=== PATIENT | female | born 1955 | race African-American/Black ===

== ENCOUNTER 2019-09-28 13:25 | Emergency (ER) | payer MEDICARE, BC ==
[~2019-09-28] VITALS: Ht 337.8 cm; Wt 97.9 kg
[2019-09-28 14:01] VITALS: BP 141/75
[2019-09-28 14:15] LABS: BASO % 1 % (0-3); EOS # 0.2 x10^3/uL (0.0-0.7); EOS % 2 % (0-3); HEMATOCRIT 38.3 % (36.0-47.0); LYMPH % 15 % (24-48); MEAN CORPUSCULAR HEMOGLOBIN 25 pg (25-35); MEAN CORPUSCULAR HGB CONC 31 g/dL (31-37); MEAN CORPUSCULAR VOLUME 79 fL (79-100); MONO # 0.8 x10^3/uL (0.0-1.1); MONO % 11 % (0-9); NEUT # 5.2 x10^3uL (1.8-7.7); NEUT % 72 % (31-73); PLATELET COUNT 225 x10^3/uL (140-400); RED BLOOD COUNT 4.84 x10^6/uL (3.50-5.40); RED CELL DISTRIBUTION WIDTH 13.9 % (11.5-14.5); WHITE BLOOD COUNT 7.2 x10^3/uL (4.0-11.0)
[2019-09-28 14:24] LABS: CALCIUM 9.3 mg/dL (8.5-10.1); CREATININE 1.5 mg/dL (0.6-1.0); POTASSIUM 3.9 mmol/L (3.5-5.1)
[2019-09-28 14:30] LABS: ALBUMIN 3.6 g/dL (3.4-5.0); MAGNESIUM 1.8 mg/dL (1.8-2.4); TOTAL BILIRUBIN 0.2 mg/dL (0.2-1.0); TOTAL PROTEIN 7.2 g/dL (6.4-8.2)
[2019-09-28 15:09] LABS: BILIRUBIN,URINE NEG (NEG); CLARITY,URINE HAZY; COLOR,URINE YELLOW; GLUCOSE,URINE 500 mg/dL (NEG)
[2019-09-28 15:10] LABS: BACTERIA,URINE FEW /HPF (0-FEW); NITRITE,URINE NEG (NEG); RBC,URINE 0 /HPF (0-2); SQUAMOUS EPITHELIAL CELL,UR MANY /LPF; UROBILINOGEN,URINE 0.2 mg/dL (0.2 mg/dL)
--- NOTE | 2019-09-28 15:43 | RAD ---
EXAM: Abdomen and pelvis CT without intravenous contrast. HISTORY: Midabdominal pain. TECHNIQUE: Computed tomographic images of the abdomen and pelvis were obtained without contrast. Multiplanar reformatting was performed. *One or more of the following individualized dose reduction techniques were utilized for this examination: 1. Automated exposure control. 2. Adjustment of the mA and/or kV according to patient size. 3. Use of iterative reconstruction technique. COMPARISON: None. FINDINGS: Evaluation of the lower thorax demonstrates atelectasis or scarring within the anterior inferior right middle lobe. There is a right infrahilar mass with soft tissue attenuation measuring approximately 6.2 cm transaxially. There is narrowing of the distal esophagus in this location. This soft tissue appears to extend beyond the midline to the left aspect of the esophagus. There is bilateral basilar atelectasis. There is a gastric lap band. There is slight fatty infiltration of the liver along the falciform ligament. There is a tiny cyst within the inferior right hepatic lobe. The gallbladder is surgically absent. The pancreas is unremarkable. There are multiple splenic granulomas. The adrenal glands are unremarkable. There is superior and inferior left renal cortical lobulation and cortical thinning due to scarring. There is a 7 mm nonobstructing stone within the lower pole the left kidney. There is a suspected 1.7 cm hypodense lesion within the medial superior right kidney, difficult to assess in the absence of contrast. There is mild urinary bladder wall thickening. There is no appendicitis. There is colonic diverticulosis. There is no diverticulitis. There are multiple uterine fibroids, some which are hyperdense. There is a small amount of pelvic free fluid. The aorta is normal in caliber. There is no lymphadenopathy. There is a tiny fat-containing supraumbilical hernia to the left of midline. There are degenerative changes throughout the spine. There is no suspicious osseous lesion. IMPRESSION: 1. 6.1 cm right infrahilar mass which appears to extend to the left of midline, measuring 6.1 cm. There is mild narrowing of the distal esophagus in this location. In the absence of prior studies for characterization, postcontrast imaging of the chest is recommended for better characterization. 2. Colonic diverticulosis. 3. Enlarged uterus containing multiple fibroids. 4. Left renal cortical scarring and left nephrolithiasis. There may be a small hypodense lesion within the medial superior right kidney. Renal sonography can be performed to confirm benignity. 5. Urinary bladder wall thickening. Correlate for cystitis. 5. Gastric lap band. Electronically signed by: Jennifer Maldonado MD (09/28/2019 3:40 PM) [facility]
[2019-09-28] MEDS ORDERED: IV NORMAL SALINE 1,000ML 1,000 ML IV ONE (16:00)
--- NOTE | 2019-09-28 16:03 | PHYS DOC ---
Past History Past Medical History: Anxiety, Asthma, Diabetes, Hypertension Past Surgical History: Other (LAP BAND) Alcohol Use: None General Adult EDM: Chief Complaint: ABDOMINAL PAIN HPI: HPI: Patient is a 64-year-old female who presented to ER today for evaluation of epigastric abdominal pain for about 10 days associate with some nausea. Patient said sometimes she felt like she had trouble swallowing after eating. She felt like she has been burping a lot lately. Patient also complained of left-sided flank pain for about 10 days as well, she had tried to put heating pad on the area, then this morning she woke up and noticed painful rash on the left side of her chest and her flank area. Patient denies any fever, no trouble breathing. Patient has history hypertension, history of lap band. Patient says she had some type of cysts or nodule in her lung that she was seen by a laborer tin can in [place], [place] where she is from, per patient her lung doctor was not concerned about it. He recommended to monitor the size of the cyst in her lung. Review of Systems: Review of Systems: Constitutional: Denies fever or chills Eyes: Denies change in visual acuity HENT: Denies nasal congestion or sore throat Respiratory: Denies cough or shortness of breath Cardiovascular: Denies chest pain or edema GI: Positive for abdominal pain, nausea, NO vomiting, bloody stools or diarrhea : Denies dysuria Musculoskeletal: Denies back pain or joint pain Integument: Positive for rash Neurologic: Denies headache, focal weakness or sensory changes Endocrine: Denies polyuria or polydipsia Lymphatic: Denies swollen glands Psychiatric: Denies depression or anxiety Heart Score: Risk Factors: Risk Factors: DM, Current or recent (<one month) smoker, HTN, HLP, family hi story of CAD, obesity. Risk Scores: Score 0 - 3: 2.5% MACE over next 6 weeks - Discharge Home Score 4 - 6: 20.3% MACE over next 6 weeks - Admit for Clinical Observation Score 7 - 10: 72.7% MACE over next 6 weeks - Early Invasive Strategies Current Medications: Current Meds: Current Medications Medications (Trade) Dose Ordered Sig/Aysha Start Time Stop Time Status Last Admin Dose Admin Sodium Chloride 1,000 ml @ 1,000 mls/hr 1X ONCE 09/28/19 16:00 09/28/19 16:59 Allergies: Allergies: Allergies Coded Allergies Type Severity Reaction Last Updated Verified acetaminophen Allergy Unknown 09/28/19 Yes hydrocodone Allergy Unknown 09/28/19 Yes Physical Exam: PE: Constitutional: Well developed, well nourished, no acute distress, non-toxic appearance. [] HENT: Normocephalic, atraumatic, bilateral external ears normal, oropharynx moist, no oral exudates, nose normal. [] Eyes: PERRLA, EOMI, conjunctiva normal, no discharge. [] Neck: Normal range of motion, no tenderness, supple, no stridor. [] Cardiovascular:Heart rate regular rhythm, no murmur [] Lungs & Thorax: Bilateral breath sounds clear to auscultation [] Abdomen: Bowel sounds normal, soft, THERE IS tenderness TO PALPATION IN EPIGASTRIC AREA, no masses, no pulsatile masses. [] Skin: Warm, dry, THERE IS CRUSTED PAPULAR RASH ON LEFT FLANK, LEFT ANTERIOR CHEST AND LEFT POSTERIOR CHEST, NOT CROSSING MIDLINE, CONSISTENT WITH SHINGLE RASH. Back: No tenderness, no CVA tenderness. [] Extremities: No tenderness, no cyanosis, no clubbing, ROM intact, no edema. [] Neurologic: Alert and oriented X 3, normal motor function, normal sensory function, no focal deficits noted. [] Psychologic: Affect normal, judgement normal, mood normal. [] Current Patient Data: Labs: Laboratory Tests Test 09/28/19 13:56 09/28/19 14:51 White Blood Count 7.2 x10^3/uL (4.0-11.0) Red Blood Count 4.84 x10^6/uL (3.50-5.40) Hemoglobin 12.0 g/dL (12.0-15.5) Hematocrit 38.3 % (36.0-47.0) Mean Corpuscular Volume 79 fL (79-100) Mean Corpuscular Hemoglobin 25 pg (25-35) Mean Corpuscular Hemoglobin Concent 31 g/dL (31-37) Red Cell Distribution Width 13.9 % (11.5-14.5) Platelet Count 225 x10^3/uL (140-400) Neutrophils (%) (Auto) 72 % (31-73) Lymphocytes (%) (Auto) 15 % (24-48) L Monocytes (%) (Auto) 11 % (0-9) H Eosinophils (%) (Auto) 2 % (0-3) Basophils (%) (Auto) 1 % (0-3) Neutrophils # (Auto) 5.2 x10^3uL (1.8-7.7) Lymphocytes # (Auto) 1.0 x10^3/uL (1.0-4.8) Monocytes # (Auto) 0.8 x10^3/uL (0.0-1.1) Eosinophils # (Auto) 0.2 x10^3/uL (0.0-0.7) Basophils # (Auto) 0.0 x10^3/uL (0.0-0.2) Sodium Level 135 mmol/L (136-145) L Potassium Level 3.9 mmol/L (3.5-5.1) Chloride Level 99 mmol/L (98-107) Carbon Dioxide Level 29 mmol/L (21-32) Anion Gap 7 (6-14) Blood Urea Nitrogen 22 mg/dL (7-20) H Creatinine 1.5 mg/dL (0.6-1.0) H Estimated GFR (Cockcroft-Gault) 42.0 BUN/Creatinine Ratio 15 (6-20) Glucose Level 95 mg/dL (70-99) Calcium Level 9.3 mg/dL (8.5-10.1) Magnesium Level 1.8 mg/dL (1.8-2.4) Total Bilirubin 0.2 mg/dL (0.2-1.0) Aspartate Amino Transferase (AST) 17 U/L (15-37) Alanine Aminotransferase (ALT) 23 U/L (14-59) Alkaline Phosphatase 55 U/L (46-116) Total Protein 7.2 g/dL (6.4-8.2) Albumin 3.6 g/dL (3.4-5.0) Albumin/Globulin Ratio 1.0 (1.0-1.7) Lipase 102 U/L (73-393) Urine Collection Type Void Urine Color Yellow Urine Clarity Hazy Urine pH 6.0 Urine Specific [place] <=1.005 Urine Protein Neg (NEG-TRACE) Urine Glucose (UA) 500 mg/dL (NEG) Urine Ketones (Stick) Neg mg/dL (NEG) Urine Blood Neg (NEG) Urine Nitrite Neg (NEG) Urine Bilirubin Neg (NEG) Urine Urobilinogen Dipstick 0.2 mg/dL (0.2 mg/dL) Urine Leukocyte Esterase Trace (NEG) Urine RBC 0 /HPF (0-2) Urine WBC 1-4 /HPF (0-4) Urine Squamous Epithelial Cells Many /LPF Urine Bacteria Few /HPF (0-FEW) Vital Signs: Vital Signs Date Time Temp Pulse Resp B/P (MAP) Pulse Ox O2 Delivery O2 Flow Rate FiO2 09/28/19 14:01 98.2 81 20 141/75 (97) 97 Room Air EKG: EKG: EKG was done at 1710, heart rate of 78 bpm, sinus rhythm, no ST segment elevation left axis. EKG was read by this physician. [] Radiology/Procedures: Radiology/Procedures: [][address] [address] IMAGING REPORT Signed PATIENT: BETI PAULCOUNT: [id number] : 1955 LOCATION: ER AGE: 64 SEX: F EXAM STATUS: REG ER ORD. PHYSICIAN: RITO AGARWAL DO REASON: mid abdominal pain for two days PROCEDURE: CT ABDOMEN PELVIS WO CONTRAST EXAM: Abdomen and pelvis CT without intravenous contrast. HISTORY: Midabdominal pain. TECHNIQUE: Computed tomographic images of the abdomen and pelvis were obtained without contrast. Multiplanar reformatting was performed. *One or more of the following individualized dose reduction techniques were utilized for this examination: 1. Automated exposure control. 2. Adjustment of the mA and/or kV according to patient size. 3. Use of iterative reconstruction technique. COMPARISON: None. FINDINGS: Evaluation of the lower thorax demonstrates atelectasis or scarring within the anterior inferior right middle lobe. There is a right infrahilar mass with soft tissue attenuation measuring approximately 6.2 cm transaxially. There is narrowing of the distal esophagus in this location. This soft tissue appears to extend beyond the midline to the left aspect of the esophagus. There is bilateral basilar atelectasis. There is a gastric lap band. There is slight fatty infiltration of the liver along the falciform ligament. There is a tiny cyst within the inferior right hepatic lobe. The gallbladder is surgically absent. The pancreas is unremarkable. There are multiple splenic granulomas. The adrenal glands are unremarkable. There is superior and inferior left renal cortical lobulation and cortical thinning due to scarring. There is a 7 mm nonobstructing stone within the lower pole the left kidney. There is a suspected 1.7 cm hypodense lesion within the medial superior right kidney, difficult to assess in the absence of contrast. There is mild urinary bladder wall thickening. There is no appendicitis. There is colonic diverticulosis. There is no diverticulitis. There are multiple uterine fibroids, some which are hyperdense. There is a small amount of pelvic free fluid. The aorta is normal in caliber. There is no lymphadenopathy. There is a tiny fat-containing supraumbilical hernia to the left of midline. There are degenerative changes throughout the spine. There is no suspicious osseous lesion. IMPRESSION: 1. 6.1 cm right infrahilar mass which appears to extend to the left of midline, measuring 6.1 cm. There is mild narrowing of the distal esophagus in this location. In the absence of prior studies for characterization, postcontrast imaging of the chest is recommended for better characterization. 2. Colonic diverticulosis. 3. Enlarged uterus containing multiple fibroids. 4. Left renal cortical scarring and left nephrolithiasis. There may be a small hypodense lesion within the medial superior right kidney. Renal sonography can be performed to confirm benignity. 5. Urinary bladder wall thickening. Correlate for cystitis. 5. Gastric lap band. Electronically signed by: Jennifer Cueva MD (09/28/2019 3:40 PM) [facility] DICTATED AND SIGNED BY: JENNIFER CUEVA MD DATE: 09/28/19 1433 CC: CLAUDE DESOUZA DNP; NON,STAFF; RITO AGARWAL DO ~ [address] [address] IMAGING REPORT Signed PATIENT: BETI PAULCOUNT: [id number] : 1955 LOCATION: ER AGE: 64 SEX: F EXAM STATUS: REG ER ORD. PHYSICIAN: RITO AGARWAL DO REASON: abnormal mass on FOUND ON ct ABDOMEN TODAY, EPIGASTRIC PAIN PROCEDURE: CT CHEST W/CONTRAST CT CHEST W/CONTRAST INDICATION: Lung mass. Comparison: Same-day CT abdomen pelvis. TECHNIQUE: Following the uneventful administration of intravenous contrast, 60 cc Omnipaque 300, axial CT sections were obtained through the lungs and upper abdomen. Multiplanar reconstructions and MIP images were obtained. PQRS compliance statement: One or more of the following individualized dose reduction techniques were utilized for this examination: 1. Automated exposure control 2. Adjustment of the mA and/or kV according to patient size 3. Use of iterative reconstruction technique FINDINGS: Lungs and Airways: Right retrocardiac mediastinal mass measuring 5.0 x 2.2 x 5.2 cm (TV by AP by CC). Mass abuts the distal esophagus, without distinct fat plane. No abnormality of the central airways. Pleura: No pleural effusion or pneumothorax. Heart and Mediastinum: 1 cm right thyroid hypodensity, not requiring further evaluation based on size criteria. Surgical clips adjacent to the right lobe of the thyroid. No axillary or supraclavicular lymphadenopathy. Enlarged subcarinal lymph node measuring 3.4 x 2.8 cm. The heart and pericardium are within normal limits. The great vessels of the thorax are normal. Abdomen: Please see same-day CT abdomen pelvis report for intra-abdominal findings. Bones and Soft Tissues: Incompletely characterized 2.2 cm left breast lesion and 1.2 cm right breast lesion. IMPRESSION: 1. Retrocardiac mediastinal mass measuring up to 5.2 cm, possibly representing conglomerate lymphadenopathy. Subcarinal lymphadenopathy is also present. Consider lymphoproliferative disorder or metastatic disease. 2. Incompletely characterized bilateral breast lesions measuring 2.2 and 1.2 cm. Correlate with prior mammography. Electronically signed by: Storm Arellano MD (09/28/2019 5:19 PM) [facility] DICTATED AND SIGNED BY: STORM ARELLANO MD DATE: 09/28/19 7739 CC: CLAUDE DESOUZA DNP; NON,STAFF; RITO AGARWAL DO ~ Course & Med Decision Making: Course & Med Decision Making Pertinent Labs and Imaging studies reviewed. (See chart for details) Patient is a 64-year-old female who was found to have multiple medical problems today in the ED. Patient has had epigastric abdominal pain that associated with some difficulty swallowing, most likely caused by the mediastinal mass that abutted into the distal esophagus causing mild obstruction. Patient had multiple lesions on her breast noted on CT scan her chest, suspicious metastatic disease spreading from the breast into her lymph nodes in the mediastinal area. Patient will be transferred to [facility] for further evaluation and treatment. Patient also have shingle rash on left side of chest and her flank area. Discussed with Dr. Hendrickson who agreed to accept the patient for transfer to [place]. Patient is amenable to plan of care. Dragon Disclaimer: Dragon Disclaimer: This electronic medical record was generated, in whole or in part, using a voice recognition dictation system. Departure Departure: Impression: Primary Impression: Abdominal pain Additional Impressions: Mediastinal mass Breast lesion Shingles Disposition: XFER SHT-TRM HOSP Condition: STABLE (transferred to [facility], accepted by Dr. Hendrickson. ) Referrals: NON,STAFF (PCP) RITO AGARWAL DO September 28, 2019 16:03
[2019-09-28] MEDS ORDERED: IOHEXOL 300 MG/ML 75 ML VIAL. IV ONE ×2 (16:15→16:30)
[2019-09-28] MEDS ORDERED: CONTRAST GIVEN. MC PRN (16:30)
[2019-09-28] MEDS ORDERED: ONDANSETRON PF 4 MG/2 ML VIAL. IVP ONE (17:15)
[2019-09-28] MEDS ORDERED: FAMOTIDINE 20 MG/2 ML VIAL IVP ONE (17:15)
[2019-09-28] MEDS ORDERED: MORPHINE SULFATE 4 MG/ML DISP.SYRIN. IV ONE (17:15)
--- NOTE | 2019-09-28 17:22 | RAD ---
CT CHEST W/CONTRAST INDICATION: Lung mass. Comparison: Same-day CT abdomen pelvis. TECHNIQUE: Following the uneventful administration of intravenous contrast, 60 cc Omnipaque 300, axial CT sections were obtained through the lungs and upper abdomen. Multiplanar reconstructions and MIP images were obtained. PQRS compliance statement: One or more of the following individualized dose reduction techniques were utilized for this examination: 1. Automated exposure control 2. Adjustment of the mA and/or kV according to patient size 3. Use of iterative reconstruction technique FINDINGS: Lungs and Airways: Right retrocardiac mediastinal mass measuring 5.0 x 2.2 x 5.2 cm (TV by AP by CC). Mass abuts the distal esophagus, without distinct fat plane. No abnormality of the central airways. Pleura: No pleural effusion or pneumothorax. Heart and Mediastinum: 1 cm right thyroid hypodensity, not requiring further evaluation based on size criteria. Surgical clips adjacent to the right lobe of the thyroid. No axillary or supraclavicular lymphadenopathy. Enlarged subcarinal lymph node measuring 3.4 x 2.8 cm. The heart and pericardium are within normal limits. The great vessels of the thorax are normal. Abdomen: Please see same-day CT abdomen pelvis report for intra-abdominal findings. Bones and Soft Tissues: Incompletely characterized 2.2 cm left breast lesion and 1.2 cm right breast lesion. IMPRESSION: 1. Retrocardiac mediastinal mass measuring up to 5.2 cm, possibly representing conglomerate lymphadenopathy. Subcarinal lymphadenopathy is also present. Consider lymphoproliferative disorder or metastatic disease. 2. Incompletely characterized bilateral breast lesions measuring 2.2 and 1.2 cm. Correlate with prior mammography. Electronically signed by: Bubba Hou MD (09/28/2019 5:19 PM) [facility]
--- NOTE | 2019-09-28 17:22 | EKG ---
[address] [address] Test Date: 2019-09-28 Test Time: 17:10:48 Pat Name: VISH PAUL Department: Room: Gender: F Stuffed Casing Tier: : 1955 Requested By: RITO AGARWAL Order Number: [id number] Reading MD: Pete Merchant Measurements Intervals [place] Rate: 78 P: 0 PA: 178 QRS: -21 QRSD: 82 T: 18 QT: 368 QTc: 423 Interpretive Statements SINUS RHYTHM LEFTWARD AXIS Electronically Signed On 09-30-2019 7:52:17 CDT by Pete Merchant
[2019-09-29] MEDS ORDERED: valACYclovir 500 MG TABLET. PO SCH (10:45)
== END 2019-09-28 19:10 | disposition short-term general hospital (02) ==
LOC: ER 13:25
DX: R10.13 Epigastric pain (principal); R22.2 Localized swelling, mass and lump, trunk; N64.89 Other specified disorders of breast; B02.9 Zoster without complications; J45.909 Unspecified asthma, uncomplicated; E11.9 Type 2 diabetes mellitus without complications; I10 Essential (primary) hypertension; F41.9 Anxiety disorder, unspecified; Z88.6 Allergy status to analgesic agent; Z88.5 Allergy status to narcotic agent
CPT/HCPCS: 36415; 71260; 74176; 80053; 81001; 83690; 83735; 84484; 85025; 87086; 93005; 96374; 96375; 99285; J2270; J2405; J3490; J7030